=== PATIENT | female | born 1990 | race Caucasian/White ===

== ENCOUNTER → 2020-04-24 | Outpatient (CLI) | payer BC, SELFPAY ==
[2020-04-24 14:39] VITALS: BMI 36.8
[2020-04-27 14:38] LABS: HPV Reflexed? NOT INDICATED
== END | disposition home or self-care (01) ==
LOC: LABSPEC 17:19
PROVIDERS: PCP Physician Assistant; Referring Provider Obstetrics & Gynecology; Visit Provider Obstetrics & Gynecology
DX: Z12.4 Encounter for screening for malignant neoplasm of cervix (principal)
CPT/HCPCS: 88175; G0145

== ENCOUNTER 2021-12-26 09:40 | Outpatient (CLI) | payer BC, SELFPAY ==
[2021-12-12 11:41] LABS: Amphetamine Urine VISTA NEGATIVE (<1000 ng/mL); Barbiturate Urine VISTA NEGATIVE (< 200 ng/mL); Benzodiazepine Urine VISTA NEGATIVE (< 200 ng/mL); Cocaine Urine VISTA NEGATIVE (< 300 ng/mL); Ecstacy Urine VISTA NEGATIVE (< 500 ng/mL); Methadone Urine VISTA NEGATIVE (< 300 ng/mL); PCP Urine VISTA NEGATIVE (< 25 ng/mL); THC Urine VISTA NEGATIVE (< 50 ng/mL); Vista UDS pH Range 7
[2021-12-16 18:08] LABS: Chlamydia By Nucleic Acid AMP Negative (Negative)
[2021-12-17 16:46] LABS: Gonococcus By Nucleic Acid AMP Negative (Negative)
[2021-12-26 10:02] LABS: Absolute Lymphocyte Count 2.05 X10^3/uL (0.83-4.51); Absolute Neutrophil Count 4.6 X10^3/uL (2.0-7.7); Basophil# 0.03 X10^3/uL; Basophil% 0.4 % (0-1); Eosinophil# 0.11 X10^3/uL; Eosinophils% 1.5 % (0-5); Hematocrit 36.2 % (37-47); Hemoglobin 12.5 g/dL (12.0-15.0); Lymphocyte # 2.05 X10^3/ul (0.83-4.51); Lymphocyte % 28.3 % (19-41); Mean Corp Hgb Conc 34.5 g/dL (32-36); Mean Corpuscular Hgb 31.2 pg (27.0-32.0); Mean Corpuscular Volume 90.3 fL (81-99); Mean Platelet Vol. 9.3 fl (6.2-12.0); Monocyte# 0.43 X10^3/uL; Monocyte% 5.9 % (0-10); NRBC Flagged by Analyzer 0 % (0-5); Neutrophil # 4.58 X10^3/uL (2.7-7.7); Neutrophil % 63.3 % (47-70); Platelet Count 263 K/mm3 (150-450); RBC Distribution Width CV 11.8 % (11.6-14.6); RBC Distribution Width SD 38.8 fl (35.1-43.9); Red Blood Count 4.01 M/mm3 (4.2-5.4); White Blood Count 7.2 K/mm3 (4.4-11.0)
[2021-12-26 11:17] LABS: HIV - WCH Non-Reactive (Nonreactive); Hepatitis B Surface Antigen Non-Reactive (Nonreactive); Hepatitis C Antibody Non-Reactive (Nonreactive); Rubella IgG Reactive (Nonreactive); Syphilis Antibodies Non-reactive
== END 2021-12-26 23:59 | disposition home or self-care (01) ==
LOC: PAVLAB 09:41
PROVIDERS: PCP Physician Assistant; Referring Provider Obstetrics & Gynecology; Visit Provider Obstetrics & Gynecology
DX: Z34.90 Encounter for supervision of normal pregnancy, unspecified, unspecified trimester (principal)
CPT/HCPCS: 36415; 80307; 85025; 86703; 86762; 86780; 86803; 86850; 86900; 86901; 87086; 87340; 87491; 87591

== ENCOUNTER → 2022-04-18 | Outpatient (CLI) | payer BC, SELFPAY ==
[2022-04-18 09:22] LABS: Absolute Lymphocyte Count 1.96 X10^3/uL (0.83-4.51); Absolute Neutrophil Count 9.8 X10^3/uL (2.0-7.7); Basophil# 0.09 X10^3/uL; Basophil% 0.7 % (0-1); Eosinophil# 0.14 X10^3/uL; Eosinophils% 1.1 % (0-5); Hematocrit 34.7 % (37-47); Hemoglobin 11.8 g/dL (12.0-15.0); Lymphocyte # 1.96 X10^3/ul (0.83-4.51); Lymphocyte % 15.1 % (19-41); Mean Corpuscular Hgb 31.5 pg (27.0-32.0); Mean Corpuscular Volume 92.5 fL (81-99); Mean Platelet Vol. 9.4 fl (6.2-12.0); Monocyte# 0.67 X10^3/uL; Monocyte% 5.2 % (0-10); NRBC Flagged by Analyzer 0 % (0-5); Neutrophil # 9.75 X10^3/uL (2.7-7.7); Neutrophil % 75.3 % (47-70); Platelet Count 233 K/mm3 (150-450); RBC Distribution Width CV 12.3 % (11.6-14.6); RBC Distribution Width SD 41.8 fl (35.1-43.9); Red Blood Count 3.75 M/mm3 (4.2-5.4); White Blood Count 12.9 K/mm3 (4.4-11.0)
[2022-04-18 09:44] LABS: Glucose Challenge Gest 1H 50g 90 mg/dL (70-140)
== END | disposition home or self-care (01) ==
LOC: PAVLAB 08:55
PROVIDERS: PCP Physician Assistant; Referring Provider Obstetrics & Gynecology; Visit Provider Obstetrics & Gynecology
DX: Z34.90 Encounter for supervision of normal pregnancy, unspecified, unspecified trimester (principal)
CPT/HCPCS: 36415; 82950; 85025

== ENCOUNTER → 2022-06-23 | Outpatient (CLI) | payer BC, SELFPAY | END | disposition home or self-care (01) | LOC: LABSPEC 16:44 | PROVIDERS: PCP Physician Assistant; Visit Provider Obstetrics & Gynecology | DX: Z34.90 Encounter for supervision of normal pregnancy, unspecified, unspecified trimester (principal) | CPT/HCPCS: 87081 ==

== ENCOUNTER 2022-07-15 00:42 | Outpatient (CLI) | payer BC, SELFPAY ==
[2022-07-15 01:05] VITALS: BP 123/72; TEMP 36.8
[2022-07-15 01:06] VITALS: PULSE 81; O2SAT 98
[2022-07-15 01:12] VITALS: BMI 39.3
[2022-07-15 01:51] LABS: ROM Internal Control Test YES-OK TO RESULT pt. (Internal QC); ROM Patient Test Negative (Negative)
--- NOTE | 2022-07-17 21:52 | OB.TRI.PN ---
Progress Notes Progress Note: Patient presents for triage evaluation secondary to false labor possible ROM FHT: 130 Moderate variability reactive no decelerations category I tracing [place]: no regular Contractions Assessment and plan: false labor no ROM Reactive NST, reassuring maternal and status patient discharged to home to follow-up as scheduled. See problem list details for additional plan information. Laboratory Studies: Laboratory Tests 07/15/22 Range/Units 01:20 Vag Amniotic Fld Detect Negative (Negative) Charges/Coding Procedures Urinary/Genital [id number]: [id number] non-stress test Interp
== END 2022-07-15 02:13 | disposition home or self-care (01) ==
LOC: WPOUT 00:45 → WP 00:45
PROVIDERS: Obstetrics & Gynecology; PCP Physician Assistant; Visit Provider Obstetrics & Gynecology
DX: O47.9 False labor, unspecified (principal); Z3A.00 Weeks of gestation of pregnancy not specified
CPT/HCPCS: 84112

== ENCOUNTER 2022-07-16 20:23 | Inpatient (IN) | payer BC, SELFPAY ==
[2022-07-16 20:03] VITALS: PULSE 76; TEMP 36.7; O2SAT 98
[2022-07-16 20:07] VITALS: BP 122/68; PULSE 71
[2022-07-16 20:17] VITALS: BMI 39.4
[2022-07-16 20:34] LABS: ROM Internal Control Test YES-OK TO RESULT pt. (Internal QC)
[2022-07-16 20:35] LABS: ROM Patient Test POSITIVE (Negative)
--- NOTE | 2022-07-16 20:56 | HP.PCM.OB_ITS ---
HPI - General General Date of Admission: 07/16/22 HPI Narrative MARTÍNEZ RUFF, is a 31 y/o @ 40 weeks 1 day who presents to L&D with leaking fluid. Rom + was noted to be positive but she is not having any contractions. Maternal Data Information JANNA Calculator Estimated Delivery Date Method Current WG Current Estimate 07/15/22 LMP (Certain) 40w 1d Other Estimates 07/14/22 Ultrasound #1 40w 2d PFSH PFSH Medical History Migraine PMDD (premenstrual dysphoric disorder) Home Medications breast pump #1 ea 04/18/22 [Rx Last Taken Unknown] prenat.vits,césar,kzv-naya-ssrgz 1 tab PO DAILY 07/16/22 [History Last Taken Unknown] Allergy/AdvReac Type Severity Reaction Status Date / Time cephalexin Allergy Mild hives Verified 07/16/22 20:20 Family History Father Hypertension Grandmother Breast cancer Social History household members: spouse and children housing: house current occupational status: employed current occupation: [employer] pets and animals: Yes history of recent travel: No Smoking Status: Never smoker alcohol intake: former details: prior to substance use type: does not use caffeine: Yes what type of physical activity do you participate in: walking frequency: 5-6 times per week seatbelt use: always do you feel safe at home: Yes additional social history: - Param- Tricia Forearm Patient works at [employer] History 3 Elective abortions Hx Para 2 Spontaneous abortions Hx # Term Pregnancies Ectopic pregnancies Hx # Pregnancies Multiple births # of living children Past Pregnancies Del. Date Name GA/Weeks Outcome Route Bth Weight Infant Gen Labor Lgth Anesthesia Del Locatn Provider FOB 08/05/14 Atul 39 live - full term Male [facility] Dr. Dong 02/19/17 Martinez 39 live - full term Male [facility] Dr. Montes Visit Details Expected Delivery Route/Plan Labor Preferences- labor support person: param labor intervention preferences: pain management options preferred: epidural cut cord/dad catch: yes : yes PP control planned: NFP discussed possible routes of delivery and associated risks: [] special requests: [] Plans Covid status: un-vaccinated Flu vaccine: vaccinated Tdap vaccine: declined Rhogam: rh pos LARC form signed: declined movement and labor precautions reviewed. Problem list reviewed and updated with the most current plan of care details and appropriate orders placed. Relevant counseling for the gestational age provided. Continue routine care and follow up unless otherwise noted in visit notes/problem list details OB Flowsheet Initial Weight: Not Recorded Date -?-?-?-?-?-?-?-?-?-?-?-?- EGA Weight BP Urine Prot -?-?-?-?-?-?-?-?-?-?-?-?- Glucose FHR FuHt Pres Dilation -?-?-?-?-?-?-?-?-?-?-?-?- Effaced St Visit Note 12/12/21 -?-?-?-?-?-?-?-?-?-?-?-?- 9w 2d 209 lb 8 oz 120/84 -?-?-?-?-?-?-?-?-?-?-?-?- 180 -?-?-?-?-?-?-?-?-?-?-?-?- JV- CRL consiste nt with LMP. JANNA 07/15/2022 01/10/22 -?-?--?-?-?-?-?-?-?-?-?-?- 13w 3d 211 lb 102/84 -?-?-?-?-?-?-?-?-?-?-?-?- 145 -?-?-?-?-?-?-?-?-?-?-?-?- SM- no vb crampi ng 02/21/22 -?-?-?-?-?-?-?-?-?-?-?-?- 19w 3d 218 lb 4 oz 120/70 Nega tive -?-?-?-?-?-?-?-?-?-?-?-?- Negative 147 -?-?-?-?-?-?-?-?-?-?-?-?- JV- pt had a 3D ultrasound and found out it is a girl! no complaints today. anatomy scan next week. 03/21/22 -?-?-?-?-?-?-?-?-?-?-?-?- 23w 3d 225 lb 128/82 Negative -?-?-?-?-?-?-?--?-?-?-?-?- Negative 147 -?-?-?-?-?-?-?-?-?-?-?-?- JV- no lof, vagi nal bleeding, or cramping, plan for wellbutrin . 04/18/22 -?-?-?-?--?-?-?-?-?-?-?-?- 27w 3d 230 lb 2 oz 128/70 Nega tive -?-?-?-?-?-?-?-?-?-?-?-?- Negative 153 -?-?-?-?-?-?-?-?-?-?-?-?- JV- still has sw elling in her legs and carpal tunnel issues. GCT normal. 05/08/22 -?-?-?-?-?-?-?-?-?-?-?-?- 30w 2d 234 lb 2 oz 124/86 Nega tive -?-?-?-?-?-?-?-?-?-?-?-?- Negative 145 -?-?-?-?-?-?-?-?-?-?-?-?- JV- pt had some pelvic pain issues yesterday but feeling better today. no complaints. 05/30/22 -?-?-?-?-?-?-?-?-?-?-?-?- 33w 3d 238 lb 128/76 Negative -?-?-?-?-?-?-?-?-?-?-?-?- Negative 145 34 -?-?-?-?-?-?-?-?-?-?-?-?- SM- no vb lof go od fm no reuglar ctx 06/12/22 -?-?-?-?-?-?-?-?-?-?-?-?- 35w 2d 239 lb 8 oz 120/80 Nega tive -?-?-?-?-?-?-?-?-?-?-?-?- Negative 147 35 -?-?-?-?-?-?-?-?-?-?-?-?- JV- no lof, vagi nal bleeding, or dec fm. gbs next visit. 06/23/22 -?-?-?-?-?-?-?-?-?-?-?-?- 36w 6d 242 lb 4 oz 118/76 Nega tive -?-?-?-?-?-?-?-?-?-?-?-?- Negative 145 38 Cephalic 1 -?-?-?-?-?-?-?-?-?-?-?-?- SM- no vb lof go od fm no regualr ctx gbs done 06/26/22 -?-?-?-?-?-?-?-?-?-?-?-?- 37w 2d 239 lb 2 oz 120/76 Nega tive -?-?-?-?-?-?-?-?-?-?-?-?- Negative 150 Cephalic 2 -?-?-?-?-?-?-?-?-?-?-?-?- 50 -2 -work in for cramping and dec movement. Reactive NST. Reviewed S&S labor 06/30/22 -?-?-?-?-?-?-?-?-?-?-?-?- 37w 6d 243 lb 136/84 Negative -?-?-?-?-?-?-?-?-?-?-?-?- Negative 140 38 Cephalic 2 -?-?-?-?-?-?-?-?-?-?-?-?- 50 -2 SM- no vb lof good fm no regular ctx pre labor symptoms 07/09/22 -?-?-?-?-?-?-?-?-?-?-?-?- 39w 1d 244 lb 130/88 Negative -?-?-?-?-?-?-?-?-?-?-?-?- Negative 142 38 Cephalic 2 -?-?-?-?-?-?-?-?-?-?-?-?- 70 -2 JV- no lof , vaginal bleeding, or 07/16/22 -?-?-?-?-?-?-?-?-?-?-?-?- 40w 1d 243 lb 4 oz 130/88 Nega tive -?-?-?-?-?-?-?-?-?-?-?-?- Negative 144 38 Cephalic 3 -?-?-?-?-?-?-?-?-?-?-?-?- 70 - JV- no lof , vaginal bleeding, or oct. setting up IOL for 41 weeks. ROS Constitutional Constitutional: Denies change in weight, fatigue, fever(s), headache(s), poor appetite or weakness Eyes Eyes: Denies blurry vision, change in vision, seeing flashes or spots in vision ENT HEENT: Denies dizziness, headache(s), loss taste/smell or sore throat Cardiovascular Cardiovascular: Denies chest pain, dizziness, dyspnea, irregular heart rhythm, leg edema, palpitations, rapid heart rate or vomiting Respiratory/Chest Respiratory/Chest: Denies chest tightness, cough, dyspnea or breast pain Gastrointestinal Gastrointestinal: Denies abdominal pain, anorexia, constipation, cramping, diarrhea, hemorrhoids, vomiting or weight changes Genitourinary Genitourinary: Denies dysuria, flank pain, genital lesions, genital pain, urinary frequency or urinary urgency Musculoskeletal Musculoskeletal: Denies back pain, difficulty walking, joint pain, limited range of motion, muscle cramps or numbness Integumentary Integumentary: Denies lesions or unusual bruising Neurologic Neurologic: Denies abnormal movements, abnormal speech, dizziness, numbness, seizure-like activity or syncope Psychiatric Psychiatric: Denies anxiety, behavioral changes, change in appetite, change in libido, cognitive impairment, confusion, depression, difficulty concentrating, hallucinations or suicidal thoughts Endocrine Endocrinology: Denies excessive sweating, polydipsia or polyuria Hematologic/Lymphatic Hematologic/Lymphatic: Denies easy bleeding, easy bruising or lymphadenopathy Allergic/Immunologic Allergic/Immunologic: Denies itchy eyes, lip swelling, seasonal rhinorrhea, rhinitis, throat swelling, tongue swelling, eczemia, wheezing or asthma Vital Signs Vital Signs Vital Signs: 07/16/22 20:03 07/16/22 20:03 07/16/22 20:03 Temperature Temperature Source Temporal Pulse Rate 76 Blood Pressure BP Systolic BP Diastolic Pulse Ox 98 07/16/22 20:03 07/16/22 20:07 07/16/22 20:07 Temperature 98.1 F Temperature Source Pulse Rate 71 Blood Pressure 122/68 H BP Systolic 122 BP Diastolic 68 Pulse Ox Weight Weight: 244 lb 12.8 oz Body Mass Index (BMI) 39.4 Physical Exam Const alert, oriented x3, no apparent distress and healthy appearing General Appearance: cooperative; Negative for anxious HEENT normocephalic Face and Sinus: normal facial exam Eyes EOMs intact bilaterally and no scleral icterus General Eye: normal appearance of both eyes Neck full ROM and supple Lymph Lymphatic: no lymphadenopathy noted Chest Chest: abnormal inspection of the chest Resp normal respiratory effort Effort and Inspection: able to speak in complete sentences Cardio regular rate GI soft to palpation and non-tender Inspection: gravid Palpation: soft; Negative for tender external exam normal Amniotic Fluid: ROM+plus positive + and other cx 2.5/70/-2 Back/Spine no CVA tenderness Extremity normal to inspection, full ROM and no clubbing, cyanosis or edema General Extremity: Negative for calf tenderness or edema Skin Lesions: no lesions Rashes: no rashes Psych mental status grossly normal Labs Labs Labs: Blood Type B POSITIVE Antibody Screen NEGATIVE Hct 34.7 % (37-47) L Hgb 11.8 g/dL (12.0-15.0) L Syphilis Total Ab Non-reactive Rubella IgG Antibody Reactive (Nonreactive) Hep Bs Antigen Non-Reactive (Nonreactive) Chlamydia DNA ([facility]) Negative (Negative) Neisseria gonorrhoeae DNA ([facility]ANH) Negative (Negative) HIV 1&2 Antibody Non-Reactive (Nonreactive) Glucose 1 Hr 50 gm 90 mg/dL (70-140) Rhogam given: Yes Assessment & Plan (1) Obesity affecting : COMMENT: Pt refuses GTT test until 26-28 wks (2) Supervision of normal : COMMENT: PRR JANNA 07/15/22 girl Martinez Pham (3) : QUALIFIERS: Weeks of gestation: 39 weeks Qualified Code(s): Z3A.39 - 39 weeks gestation of COMMENT: GBS neg. anatomy nl, declines genetics and carrier, ntd screening. (4) Asthma: COMMENT: allergy induced-proair rx but does not use (5) Anxiety: COMMENT: not currently being treated. Has been on xanax PRN. plan for wellbutrin (6) PMDD (premenstrual dysphoric disorder): COMMENT: didn't tolerate combination OCP. improved with weight loss and l ifestyle modifications. discussed IUD or SSRIs. handout given PLAN: Plan Patient presents IOL for srom at 40 + weeks gestation, plan management for with pitocin Pain management: plans epidural. GBS negative. Management of any complications: none I have reviewed the [facility] and made any clinically relevant updates.
[2022-07-16] MEDS: Lactated Ringers 1,000 ML 50 ML IV (21:00)
[2022-07-16 21:23] LABS: Absolute Lymphocyte Count 2.98 X10^3/uL (0.83-4.51); Basophil# 0.05 X10^3/uL; Basophil% 0.4 % (0-1); Eosinophil# 0.13 X10^3/uL; Eosinophils% 1.1 % (0-5); Hematocrit 34.9 % (37-47); Hemoglobin 11.6 g/dL (12.0-15.0); Lymphocyte # 2.98 X10^3/ul (0.83-4.51); Lymphocyte % 24.6 % (19-41); Mean Corp Hgb Conc 33.2 g/dL (32-36); Mean Corpuscular Volume 90.2 fL (81-99); Mean Platelet Vol. 10.2 fl (6.2-12.0); Monocyte# 0.81 X10^3/uL; Monocyte% 6.7 % (0-10); NRBC Flagged by Analyzer 0 % (0-5); Neutrophil # 7.96 X10^3/uL (2.7-7.7); Neutrophil % 65.8 % (47-70); Platelet Count 274 K/mm3 (150-450); RBC Distribution Width CV 12.6 % (11.6-14.6); RBC Distribution Width SD 41.3 fl (35.1-43.9); Red Blood Count 3.87 M/mm3 (4.2-5.4); White Blood Count 12.1 K/mm3 (4.4-11.0)
[2022-07-16 21:27] VITALS: TEMP 36.6
[2022-07-16] MEDS: Oxytocin 30 units/NS 500 ml 30 UNITS/500 ML IV.SOLN IV (21:30)
[2022-07-16 21:46] VITALS: BP 127/73; PULSE 72
[2022-07-16 22:41] VITALS: BP 149/78; PULSE 72; TEMP 36.4; O2SAT 97
[2022-07-16 23:24] VITALS: BP 120/73; PULSE 66
[2022-07-16] MEDS: LACTATED RINGERS 500 ML 999 ML IV (23:55)
[2022-07-17] VITALS (56 sets, daily range): BP systolic 122–169; BP diastolic 65–97; PULSE 56–92; RESP 16; TEMP 36.3–37.2; O2SAT 89–100
[2022-07-17] MEDS: fentaNYL-bupivacaine (epidural) 100 ML BAG EPIDURAL (01:11)
[2022-07-17] MEDS: Ondansetron 4 MG/2 ML Vial IV (02:01)
[2022-07-17] MEDS: Oxytocin 30 units/NS 500 ml 30 UNITS/500 ML IV.SOLN 334 UNITS IV (02:27)
--- NOTE | 2022-07-17 02:39 | EX.PCM.OBRPT ---
Assessment & Plan (1) PMDD (premenstrual dysphoric disorder): COMMENT: didn't tolerate combination OCP. improved with weight loss and lifestyle modifications. discussed IUD or SSRIs. handout given (2) Anxiety: COMMENT: not currently being treated. Has been on xanax PRN. plan for wellbutrin (3) Asthma: COMMENT: allergy induced-proair rx but does not use (4) : QUALIFIERS: Weeks of gestation: 39 weeks Qualified Code(s): Z3A.39 - 39 weeks gestation of COMMENT: GBS neg. anatomy nl, declines genetics and carrier, ntd screening. (5) Supervision of normal : COMMENT: PRR JANNA 07/15/22 girl Martinez Pham Param (6) Obesity affecting : COMMENT: Pt refuses GTT test until 26-28 wks Maternal Data Information JANNA Calculator Estimated Delivery Date Method Current WG Current Estimate 07/15/22 LMP (Certain) 40w 2d Other Estimates 07/14/22 Ultrasound #1 40w 3d Final JANNA Source: LMP Vaginal Delivery Maternal Presentation Maternal Presentation: Active Labor and Spontaneous Rupture of Membranes Type of Induction: Pitocin Operative Information Date of Procedure: 07/17/22 Pre-Operative Diagnosis: SROM, active labor, @ 40 weeks 2 days Post-Operative Diagnosis: SROM, active labor, @ 40 weeks 2 days Type of Anesthesia: Epidural Findings Description of Procedure: Patient began pushing and delivered the head in the JULIETTE presentation. The head was delivered atraumatically and a loose nuchal cord ?1 was identified and easily reduced over the infant's head. The anterior and posterior shoulders delivered without complication followed by the rest of the and the was placed on the maternal abdomen. Delayed cord clamping was employed for approximately 60 seconds. Cord was clamped and cut and gentle traction was applied to the cord and the placenta delivered spontaneously immediately following it was noted to be intact with three-vessel cord. The perineum and vagina were inspected and noted to have a 1st degree perineal laceration, repaired with a 3-0 vicryl rapide suture EBL was 100 cc. Patient and infant tolerated delivery well. Presentation: Vertex Amniotic Membrane Rupture Type: Spontaneous Amniotic Fluid Description: Clear Placenta Disposition: [facility] Cord Vessel Description: 3 Vessels Cord Entanglement: Around neck x 1, loose A Gender: Female (1 minute): 8 (5 minute): 9 Delayed Cord Clamping: Yes Post Vaginal Delivery Medications Given After Delivery: IV Pitocin Episiotomy Description: None Laceration: 1st degree Complication Complications: None Multi Select Codes Urinary/Genital Urinary/Genital CPT Codes: 97607 Vaginal Delivery [facility]
[2022-07-17] MEDS: Ibuprofen 600 MG Tablet PO ×3 (03:49→18:48)
[2022-07-17] MEDS: Acetaminophen 500 MG Tablet 1000 MG PO ×2 (13:48→20:55)
[2022-07-18] VITALS (7 sets, daily range): BP systolic 126–145; BP diastolic 62–85; PULSE 51–85; RESP 16; TEMP 36.3–36.9; O2SAT 96–97
[2022-07-18] MEDS: Ibuprofen 600 MG Tablet PO ×2 (01:13→09:18)
--- NOTE | 2022-07-18 08:35 | PN.OBGYN_ITS ---
Subjective Subjective Patient doing well without complaints. Tolerating PO. Ambulating and voiding without difficulty. Feeding well. Denies chest pain, shortness of breath, calf pain/swelling, fevers, chills, lightheadedness. Objective Data Objective Data Vital Signs: Vital Signs Temp Pulse Resp BP Pulse Ox O2 Del Method 97.4 F L 74 16 142/74 H 97 Room Air 07/18/22 08:22 07/18/22 08:22 07/18/22 08:22 07/18/22 08:22 07/18/22 08:22 07/18/22 08:22 Oxygen Delivery Method Room Air Weight: 244 lb 12.8 oz Body Mass Index (BMI) 39.4 Intake & Output: Intake and Output for Last 24 Hours 07/16/22 07/17/22 07/18/22 23:59 23:59 23:59 Intake Total 153.10 / 153.10 1412.37 / 1412.37 Output Total 1075 / 1075 Balance 153.10 / 153.10 337.37 / 337.37 Lab / Micro Data Result Diagrams: 07/16/22 21:00 Micro: Microbiology 07/16/22 20:45 Nasal Secretion SARS-CoV-2 Antigen (Rapid) - Final ROS Constitutional Constitutional: Denies chills, fatigue, fever(s), poor appetite or weakness Eyes Eyes: Denies blurry vision, change in vision, seeing flashes or spots in vision ENT HEENT: Denies dizziness, headache(s), loss taste/smell or sore throat Cardiovascular Cardiovascular: Denies chest pain, dizziness, dyspnea, irregular heart rhythm, palpitations or rapid heart rate Respiratory/Chest Respiratory/Chest: Denies chest tightness, cough, dyspnea or breast pain Gastrointestinal Gastrointestinal: Denies abdominal pain, constipation or vomiting Genitourinary Genitourinary: Denies dysuria or flank pain Musculoskeletal Musculoskeletal: Denies difficulty walking, joint pain, limited range of motion or numbness Neurologic Neurologic: Denies abnormal movements, abnormal speech, dizziness, numbness, s eizure-like activity or syncope Psychiatric Psychiatric: Denies anxiety, behavioral changes, change in appetite, confusion, depression or suicidal thoughts Physical Exam Const alert, oriented x3 and no apparent distress General Appearance: cooperative and comfortable Resp normal respiratory effort Cardio regular rate GI normal to inspection, nondistended, normoactive bowel sounds GI Narrative: uterus is firm below umbilicus Palpation: soft Back/Spine no CVA tenderness and thoraco-lumbar ROM normal Extremity normal to inspection, no clubbing, cyanosis or edema, no calf tenderness and no pedal edema Psych mental status grossly normal, thought process normal, cooperative, affect normal, speech normal, activity/motor behavior normal, denies homicidal ideation and denies suicidal ideation Assessment & Plan (1) PMDD (premenstrual dysphoric disorder): COMMENT: didn't tolerate combination OCP. improved with weight loss and lifestyle modifications. discussed IUD or SSRIs. handout given (2) Anxiety: COMMENT: not currently being treated. Has been on xanax PRN. plan for wellbutrin (3) Asthma: COMMENT: allergy induced-proair rx but does not use (4) : QUALIFIERS: Weeks of gestation: 39 weeks Qualified Code(s): Z3A. 39 - 39 weeks gestation of COMMENT: GBS neg. anatomy nl, declines genetics and carrier, ntd screening. (5) Supervision of normal : COMMENT: PRR JANNA 07/15/22 girl Martinez Pham Param (6) Obesity affecting : COMMENT: Pt refuses GTT test until 26-28 wks (7) Status post vaginal delivery: PLAN: Plan s/p PPD # 1 1. routine post delivery care 2. breast feeding- support given 3. rh positive 4. rubella immune 5. dc to home today
--- NOTE | 2022-07-18 08:39 | DCINST_ITS ---
Discharge Instructions Diet Discharge Diet: No restrictions Activity Discharge Activity: Return to Normal Activity, May Not Drive (while taking narcotic pain medications.) and May Shower May resume sexual activity in: 4-6 weeks Dressing / Incision Call your doctor if your incision/area has: Continuous Slow Oozing, Sudden Increased Bleeding, Increased Pain/ Swelling, Increased Redness and Foul Smelling Discharge Follow Up Care Please Follow Up With: Betsy Ramires, When: Call [phone] to make an appointment with your doctor in 6 weeks. If you had elevated blood pressure or 4th degree laceration, you will need to be seen in 2 weeks. Test Results: Test results from this visit will be discussed in further detail at your follow- up appointment, if applicable. Discharge Plan Admission Admit Date/Time: 07/16/22 20:23 Primary Reason for Your Visit: vaginal delivery Attending Provider: Betsy Ramires Primary Care Provider: Wendy Alicea Discharge Orders/Prescriptions Prescriptions: New ibuprofen 600 mg tablet 600 mg PO Q6H PRN (Reason: pain) 7 Days Qty: 28 0RF Rx Instructions: one tab every 6 hrs as needed for mild to moderate pain No Action (DME) breast pump Device See Rx Instructions .ROUTE .MEDSUPPLY Qty: 1 0RF Rx Instructions: As directed #2 Tablet 1 tab PO DAILY Referrals / Follow Up: Wendy Alicea PA [Primary Care Provider] -
--- NOTE | 2022-07-24 14:43 | NURSING ---
Follow Up Phone called attempted. Voicemail left 07/24/22.
== END 2022-07-18 10:55 | disposition home or self-care (01) | DRG 807 ==
LOC: WPOUT 20:28 → WP 20:28
PROVIDERS: Admitting Provider Obstetrics & Gynecology; PCP Physician Assistant; Visit Provider Obstetrics & Gynecology
DX: O99.344 Other mental disorders complicating childbirth (principal); Z37.0 Single live birth; F32.81 Premenstrual dysphoric disorder; F41.9 Anxiety disorder, unspecified; J45.909 Unspecified asthma, uncomplicated; O99.52 Diseases of the respiratory system complicating childbirth; Z3A.40 40 weeks gestation of pregnancy; O99.214 Obesity complicating childbirth; O69.81X0 Labor and delivery complicated by cord around neck, without compression, not applicable or unspecified; O70.0 First degree perineal laceration during delivery
CPT/HCPCS: 59025; 59050; 84112; 85025; 86850; 86900; 86901; 87811; 99218; J7120; G0378; J2405

== ENCOUNTER → 2023-08-12 | Outpatient (CLI) | payer BC, SELFPAY ==
--- NOTE | 2023-08-12 09:02 | BI_ITS ---
MAMMOGRAPHY - BILATERAL DIAGNOSTIC REASON FOR EXAM: Female, 32 years old. Left nipple pain. Patient is presently less feeding twice daily. PERTINENT HISTORY: Grandmother with breast cancer. TECHNIQUE: Digital bilateral breast janey (3D mammographic acquisition) in the CC and MLO projections. 2-D mediolateral oblique (MLO) and craniocaudad (CC) views of both breasts were obtained. CAD: Full Field Digital Mammography with Computer Added Detection was performed. COMPARISON: None. Baseline examination. FINDINGS: Breast Composition: The breasts are extremely dense, which lowers the sensitivity of mammography. There are no dominant masses or suspicious calcifications. No other significant abnormalities are identified. BI/DIAG MAMM W/CAD, BILAT IMPRESSION: Negative diagnostic mammogram. The patient''s history of the left nipple pain, targeted correlation with ultrasound is recommended. ASSESSMENT CATEGORY: BIRADS Category 0: Incomplete. Need additional imaging evaluation. A letter regarding these results will be sent to the patient by the facility within 30 days. Approximately 10% of breast cancers are not detected by mammography. A normal mammogram should not delay biopsy of a clinically suspicious abnormality. Electronically Signed: Dino Rey MD at 10:00 EDT ,
--- NOTE | 2023-08-12 09:02 | US_ITS ---
STUDY: ULTRASOUND BREAST - LEFT REASON FOR EXAM: Female, 32 years old. Intermittent left retroareolar breast pain. TECHNIQUE: Axial and longitudinal images of the LEFT breast were performed with a high resolution ultrasound transducer. # OF IMAGES: 40 COMPARISON: Comparison is made with prior mammogram done earlier in the day. FINDINGS: LEFT Breast: The retroareolar region of the breast was examined with ultrasound. There is evidence of retroareolar ductal dilatation. No solid or cystic mass lesion is seen. US/Breast Limited Unilateral IMPRESSION: Retro areolar ductal dilatation. ASSESSMENT CATEGORY: BIRADS Category 2: Benign. A letter regarding these results will be sent to the patient by the facility within 30 days. Electronically Signed: Dino Rey MD at 15:03 EDT ,
== END | disposition home or self-care (01) ==
PROVIDERS: PCP Physician Assistant; Referring Provider Obstetrics & Gynecology; Visit Provider Obstetrics & Gynecology
DX: N64.4 Mastodynia (principal)
CPT/HCPCS: 76642; 77062; 77066; G0279

== ENCOUNTER → 2024-04-18 | Outpatient (CLI) | payer BC, SELFPAY ==
--- NOTE | 2024-04-18 07:28 | CT_ITS ---
STUDY: CT SOFT TISSUE NECK WITH CONTRAST REASON FOR EXAM: Female, 33 years old. 3 month history of enlarging right cervical mass. RADIATION DOSAGE (If Supplied By Facility): CTDIvol = ( 14.81 ) mGy, DLP = ( 440.39 ) mGycm TECHNIQUE: The patient was scanned in a multi-detector CT scanner. High resolution transaxial imaging was performed following intravenous administration of IV 100mL Isovue-370. Sagittal and coronal images were reconstructed. Individualized dose optimization techniques were used for this CT. COMPARISON: None. FINDINGS: Normal bilateral parotid glands. Normal bilateral commercial retoucher spaces. Normal bilateral parapharyngeal spaces. Normal bilateral carotid spaces. Normal bilateral sublingual and submandibular glands and spaces. Normal visualized nasopharynx. Normal retropharyngeal space. Normal perivertebral space. Normal visualized bilateral faucial tonsils. The visualized tongue, tongue base and oropharynx are normal. The visualized cervical lymph nodes (levels I-) are within normal size limits, and maintain normal morphology. There is no demonstrated solid or cystic mass lesion. There is no abnormal contrast enhancement. Normal epiglottis, bilateral vallecula and hypopharynx. The pre-epiglottic and paraglottic adipose spaces are normal. Normal visualized bilateral piriform sinuses, aryepiglottic folds, vocal cords, and arytenoid-cricoid articulations. Normal subglottic trachea. Normal bilateral lobes of the thyroid gland. Normal visualized pulmonary apices. Normal visualized paranasal sinuses. Normal visualized cervical spine. CT/Soft Tissue Neck WITH Contrast IMPRESSION: Normal enhanced CT examination of the soft tissues of the neck. Electronically Signed: Dino Rey MD at 10:58 EDT ,
== END | disposition home or self-care (01) ==
PROVIDERS: PCP Physician Assistant; Referring Provider Otolaryngology; Visit Provider Otolaryngology
DX: R22.1 Localized swelling, mass and lump, neck (principal)
CPT/HCPCS: 70491; Q9967